=== PATIENT | female | born 1965 ===

== ENCOUNTER 2021-12-06 05:47 | Day surgery (SDC) | payer OTHER ==
[~2021-12-06] VITALS: Ht 162.6 cm; Wt 73.0 kg
[2021-12-06] MEDS ORDERED: MACROBID 100 M100 MG PO (12:29)
[2021-12-06] MEDS ORDERED: ULTRACET PO (12:29)
== END 2021-12-06 17:00 | disposition home or self-care (01) ==
LOC: CIR.AMB 05:47
PROVIDERS: ATTEND Obstetrics & Gynecology Gynecology
DX: N36.41 Hypermobility of urethra (principal); N39.3 Stress incontinence (female) (male); Z20.822 Contact with and (suspected) exposure to COVID-19; J45.909 Unspecified asthma, uncomplicated
CPT/HCPCS: 57288; C1771